=== PATIENT | male | born 1995 | race Caucasian/White ===

== ENCOUNTER 2022-03-20 13:27 | Emergency (ER) | payer OTHER ==
[~2022-03-20] VITALS: Ht 188 cm; Wt 81.6 kg
--- NOTE | 2022-03-20 13:37 | NUR ---
BIB MOM C/O L HAND LACERATION WHILE PREPPING THE MEAT YESTERDAY.
[2022-03-20] MEDS ORDERED: TDAP [DIPH/PERTUSSIS/TET] 0.5 ML VIAL IM ONE ×2 (13:50→14:00)
[2022-03-20] MEDS ORDERED: LIDOCAINE 1%-EPI 1:100,000 20 ML VIAL ONE (14:03)
[2022-03-20 14:15] VITALS: BP 115/63
--- NOTE | 2022-03-20 14:15 | NUR ---
Patient discharged to home in stable condition. Written and verbal after care instructions given. Patient verbalizes understanding of instruction.
== END 2022-03-20 14:15 | disposition home or self-care (01) ==
LOC: ER 13:34
DX: S61.412A Laceration without foreign body of left hand, initial encounter (principal); W26.0XXA Contact with knife, initial encounter; Y93.G3 Activity, cooking and baking; Y92.89 Other specified places as the place of occurrence of the external cause; Y99.8 Other external cause status
CPT/HCPCS: 12002; 90471; 90715; 99283; J3490

== ENCOUNTER 2024-11-19 17:18 | Emergency (ER) | payer OTHER ==
[~2024-11-19] VITALS: Ht 188 cm; Wt 95.7 kg
[2024-11-19] MEDS ORDERED: CYCLOBENZAPRINE 10 MG TABLET ONE (19:17)
[2024-11-19] MEDS: CYCLOBENZAPRINE 10 MG TABLET PO ONE (19:20)
[2024-11-19] MEDS ORDERED: CYCL10TA9 PO (21:31)
[2024-11-19] MEDS ORDERED: ONDA4TAB11 PO (21:31)
[2024-11-19] MEDS ORDERED: IBUP-1955 PO (21:31)
[2024-11-19 21:37] VITALS: BP 108/71; TEMP 98; O2SAT 99
== END 2024-11-19 21:37 | disposition home or self-care (01) ==
LOC: ER 17:39
DX: S06.0X0A Concussion without loss of consciousness, initial encounter (principal); M54.2 Cervicalgia; R06.00 Dyspnea, unspecified; R07.9 Chest pain, unspecified; R11.2 Nausea with vomiting, unspecified; R51.9 Headache, unspecified; V43.52XA Car driver injured in collision with other type car in traffic accident, initial encounter; Y93.89 Activity, other specified; Y92.488 Other paved roadways as the place of occurrence of the external cause; Y99.8 Other external cause status
CPT/HCPCS: 70450-TC; 71045-TC; 72125-TC